=== PATIENT | male | born 1990 | race American Indian/Alaskan Native ===

== ENCOUNTER 2021-08-03 12:11 | Emergency (ER) | payer OTHER ==
[~2021-08-03] VITALS: Ht 167.6 cm; Wt 83.9 kg
[2021-08-03] MEDS ORDERED: CASIRIVIMAB/IMDEVIMAB 10 ML in SODIUM CHLORIDE 0.9% 100 ML IV ONE (12:30)
[2021-08-03] MEDS ORDERED: ACETAMINOPHEN 325 MG TAB PO ONE (12:45)
[2021-08-03] MEDS ORDERED: ACETAMINOPHEN 325 MG TAB ONE (12:45)
== END 2021-08-03 13:56 | disposition home or self-care (01) ==
LOC: ER 12:18
DX: U07.1 COVID-19 (principal)
CPT/HCPCS: 99283; J7050